=== PATIENT | female | born 1990 | race American Indian/Alaskan Native ===

== ENCOUNTER 2016-12-12 13:02 | Emergency (ER) | payer OTHER ==
[2016-12-12 13:12] VITALS: RESP 16; TEMP 98.1; O2SAT 100; BMI 43.2
[2016-12-12 14:30] LABS: ADD MANUAL DIFF? NO
[2016-12-12 14:40] LABS: BASO # 0.02 K/mm3 (0.0-2.0); BASO % 0.3 % (0.0-3.0); EOS # 0.2 (0.0-0.7); EOS % 3.2 % (1.5-5.0); GRAN # 4.99 (1.4-6.5); GRAN % 68.9 % (50.0-68.0); HEMATOCRIT 44.6 % (36.0-48.0); LYMPH # 1.6 (1.2-3.4); LYMPH % 22.1 % (22.0-35.0); MEAN CELL VOLUME 93.9 fL (80.0-105.0); MEAN CORPUSCULAR HEMOGLOBIN 30.9 pg (25.0-35.0); MEAN PLATELET VOLUME 10.7 fl (7.0-11.0); MONO # 0.4 (0.1-0.6); MONO % 5.5 % (1.0-6.0); PLATELET COUNT 251 10^3/uL (120.0-450.0); RED CELL DISTRIBUTION WIDTH 13.5 % (11.5-14.5); WHITE BLOOD COUNT 7.2 10^3/ul (4.5-11.0)
[2016-12-12 14:42] LABS: ALB/GLOB RATIO 1.1 (1.1-1.8); ALKALINE PHOSPHATASE 46 U/L (38-133); ALT/SGPT 32 U/L (7-56); AST/SGOT 26 U/L (15-39); BILIRUBIN,TOTAL 0.6 mg/dL (0.2-1.3); BLOOD UREA NITROGEN 8 mg/dL (7-21); CALCIUM 8.7 mg/dL (8.4-10.5); CARBON DIOXIDE 28 mmol/L (21-33); CHLORIDE 105 mmol/L (98-107); GFR AFRICAN-AMERICAN > 60; GLUCOSE,RANDOM 88 mg/dL (70-110); POTASSIUM 3.9 mmol/L (3.6-5.0); SODIUM 141 mmol/L (132-148); TOTAL PROTEIN 6.8 g/dL (5.8-8.3)
[2016-12-12 14:46] LABS: INR 1.02 (0.93-1.08); PARTIAL THROMBOPLASTIN TIME 26.8 Seconds (23.7-30.8)
--- NOTE | 2016-12-12 14:56 | ED PDOC ---
Arrival/HPI - General Chief Complaint: Abdominal Pain Time Seen by Provider: 12/12/16 13:28 - History of Present Illness Narrative History of Present Illness (Text): 12/12/16 14:52 26yo female with lower abd. cramping and vaginal bleeding/spotting x1 day. pt states he LNMP 2 weeks ago. States she has no sob/dozier, denies weakness. No f/c, no other complaints. Past Medical History - Provider Review Nursing Documentation Reviewed: Yes - Infectious Disease Hx of Infectious Diseases: None - Tetanus Immunization Tetanus Immunization: Up to Date - Past Medical History Past Medical History: No Previous - Cardiac Hx Cardiac Disorders: No Hx Hypertension: No - Pulmonary Hx Respiratory Disorders: No Hx Tuberculosis: No - Neurological Hx Neurological Disorder: No Hx Seizures: No - HEENT Hx HEENT Disorder: No - Renal Hx Renal Disorder: No - Endocrine/Metabolic Hx Endocrine Disorders: No - Hematological/Oncological Hx Blood Disorders: No - Integumentary Hx Dermatological Disorder: No - Musculoskeletal/Rheumatological Hx Musculoskeletal Disorders: No - Gastrointestinal Hx Gastrointestinal Disorders: No - Genitourinary/Gynecological Hx Genitourinary Disorders: Yes Hx Sexually Transmitted Diseases: No 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 - Psychiatric Hx Psychophysiologic Disorder: Yes Hx Anxiety: Yes Hx Depression: Yes Hx Substance Use: No - Past Surgical History Past Surgical History: No Previous - Surgical History Hx Appendectomy: Yes - Anesthesia Hx Anesthesia: Yes Hx Anesthesia Reactions: No Hx Malignant Hyperthermia: No - Suicidal Assessment Feels Threatened In Home Enviroment: No Family/Social History Family/Social History: Unknown Family HX Smoking Status: Current Some Days Smoker Hx Alcohol Use: Yes Frequency of alcohol use: Socially Hx Substance Use: No Hx Substance Use Treatment: No Allergies/Home Meds Allergies/Adverse Reactions: Allergies No Known Allergies Allergy (Verified 12/12/16 13:12) Physical Exam - Physical Exam Narrative Physical Exam (Text): 12/12/16 14:57 - Review of Systems Constitutional: Normal. absent: Fatigue, Weight Change, Fevers Eyes: Normal ENT: denies sore throat, denies tristhmus Respiratory: Normal. absent: SOB, Cough, Sputum Cardiovascular: absent: Chest Pain, Palpitations, Syncope Gastrointestinal: lower abdominal cramping absent: Diarrhea, Nausea, Vomiting Genitourinary: vaginal bleeding absent: Dysuria, Frequency, Hematuria Musculoskeletal: Normal. absent: Arthralgias, Back Pain, Neck Pain Skin: no rashes, no erythema Neurological: absent: Focal Weakness Endocrine: Normal Hemo/Lymphatic: Normal Psychiatric: No suicidal or homicidal ideations Physical exam Patient appears age appropriate in no distress, speaking full sentences without difficulty - Systems Exam Head: Present: Atraumatic, Normocephalic Pupils: Present: PERRL Extroacular Muscles: Present: EOMI Conjunctiva: Present: Normal Mouth: Present: Moist Mucous Membranes Neck: Present: Normal Range of Motion. No: MIDLINE TENDERNESS, Paraspinal Tenderness Respiratory/Chest: Present: Clear to Auscultation, Good Air Exchange. No: Respiratory Distress, Accessory Muscle Use, Tachypneic Cardiovascular: Present: Regular Rate and Rhythm, Normal S1, S2, Peripheal Pulses Present. No: Murmurs Abdomen: Present: Normal Bowel Sounds. No: Tenderness, Distention, Peritoneal Signs, Rebound, Guarding Back: Present: Normal Inspection. No: Midline Tenderness, Paraspinal Tenderness Upper Extremity: Present: Normal Inspection. No: Cyanosis, Edema Lower Extremity: Present: Normal Inspection. No: Edema Neurological: Present: GCS=15, Speech Normal, cranial nerves II through XII fully intact with no cerebellar abnormality, neurosensory fully intact. No focal neurological deficits. Skin: Present: Warm, Dry, Normal Color. No: Rashes Lymphatic: Present: OX3, NI, NC Psychiatric: Present: Alert, Oriented x 3, Normal Insight, Normal Concentration Vital Signs Reviewed: Yes Vital Signs Temp Pulse Resp BP Pulse Ox 12/12/16 13:08 98.1 F 89 16 157/96 H 100 Temperature: Afebrile Blood Pressure: Hypertensive (asymptomatic) Pulse: Regular Respiratory Rate: Normal Appearance: Positive for: Well-Appearing Pain Distress: None Mental Status: Positive for: Alert and Oriented X 3 Medical Decision Making ED Course and Treatment: 12/12/16 14:58 26-year-old female with one-day duration vaginal bleeding. Last normal menstrual period 2 weeks ago. No signs stable in no acute findings on physical examination. Differential diagnoses includes but not limited to: Metrorrhagia versus anemia versus PCOS Patient understands that she needs to follow-up with her film examiner for outpatient ultrasound and further testing. Patient's hemoglobin stable. HCG negative Patient states that her pain has gotten better States that she feels comfortable being discharged home with outpatient follow- up Pt states she understands to return to the ER right away for new or worsening symptoms or for inability to f/u with PMD or specialist as instructed. Patient states that she fully agrees with and understands discharge instructions. States that she agrees with the plan and disposition. Verbalized and repeated discharge instructions and plan. I have given the patient opportunity to ask any additional questions. - Lab Interpretations Lab Results: 12/12/16 14:20 12/12/16 14:20 Lab Results 12/12/16 14:20: WBC 7.2, RBC 4.75, Hgb 14.7, Hct 44.6, MCV 93.9, MCH 30.9, MCHC 33.0, RDW 13.5, Plt Count 251, MPV 10.7, Gran % 68.9 H, Lymph % (Auto) 22.1, Placer % (Auto) 5.5, Eos % (Auto) 3.2, Baso % (Auto) 0.3, Gran # 4.99, Lymph # 1.6 , Placer # 0.4, Eos # 0.2, Baso # 0.02, PT 11.0, INR 1.02, APTT 26.8, Sodium 141, Potassium 3.9, Chloride 105, Carbon Dioxide 28, Anion Gap 12, BUN 8, Creatinine 0.8, Est GFR ( Amer) > 60, Est GFR (Non-Af Amer) > 60, Random Glucose 88 , Calcium 8.7, Total Bilirubin 0.6, AST 26, ALT 32, Alkaline Phosphatase 46, Total Protein 6.8, Albumin 3.6, Globulin 3.2, Albumin/Globulin Ratio 1.1 12/12/16 13:40: Urine HCG, Qual Negative - Medication Orders Current Medication Orders: Discontinued Medications Ketorolac Tromethamine (Toradol) 15 mg IVP STAT STA Stop: 12/12/16 14:07 Last Admin: 12/12/16 14:29 Dose: 15 MG IVP Administration Document 12/12/16 14:29 PR (Rec: 12/12/16 14:29 [facility]-[id number]) Charges for Administration # of IVP Administrations 1 Disposition/Present on Arrival - Present on Arrival Any Indicators Present on Arrival: No History of DVT/PE: No History of Uncontrolled Diabetes: No Urinary Catheter: No History of Decub. Ulcer: No History Surgical Site Infection Following: None - Disposition Have Diagnosis and Disposition been Completed?: Yes Diagnosis: Vaginal bleeding Disposition: HOME/ ROUTINE Disposition Time: 15:01 Patient Plan: Discharge Condition: GOOD Discharge Instructions (ExitCare): Dysfunctional Uterine Bleeding (ED) Additional Instructions: PLEASE RETURN TO THE EMERGENCY DEPARTMENT FOR NEW OR WORSENING SYMPTOMS. RETURN RIGHT AWAY IF YOU CANNOT FOLLOW UP WITH YOUR PRIMARY CARE DOCTOR, CLINIC, OR SPECIALIST IN 1-2 DAYS. Prescriptions: Ibuprofen [Motrin] 600 mg PO Q8 PRN #12 tab PRN Reason: Pain, Moderate (4-7) Referrals: Eda Lake MD [Staff Provider] - Follow up with primary Forms: WORK NOTE
[2016-12-12 14:59] LABS: URINE BILIRUBIN NEGATIVE (NEGATIVE); URINE BLOOD LARGE (NEGATIVE); URINE GLUCOSE (UA) 100 mg/dL (NEGATIVE); URINE KETONE NEGATIVE (NEGATIVE); URINE LEUKOCYTE ESTERASE TRACE Leu/uL (NEGATIVE); URINE PROTEIN 100 mg/dL (<30 mg/dL)
[2016-12-12 15:05] LABS: URINE APPEARANCE CLEAR (CLEAR); URINE COLOR LIGHT RED (YELLOW)
[2016-12-12 15:06] LABS: URINE BACTERIA MOD (NEG); URINE RBC 25 - 30 /hpf (0-2); URINE WBC 0 - 2 /hpf (0-6)
[2016-12-12 15:21] VITALS: BP 158/90; PULSE 88
== END 2016-12-12 15:21 | disposition home or self-care (01) ==
LOC: ED 13:02
DX: N93.8 Other specified abnormal uterine and vaginal bleeding (principal)
CPT/HCPCS: 80053; 81001; 84703; 85025; 85610; 85730; 87086; 87491; 87591; 96374; 99283; J1885

== ENCOUNTER 2017-01-12 14:08 | Emergency (ER) | payer OTHER ==
[2017-01-12 14:09] VITALS: BMI 43.2
== END 2017-01-12 14:57 | disposition left against medical advice (07) ==
LOC: ED 14:08
DX: Z02.89 Encounter for other administrative examinations (principal); R07.0 Pain in throat

== ENCOUNTER 2017-01-13 12:18 | Emergency (ER) | payer OTHER ==
[2017-01-13 14:12] VITALS: BMI 44.9
[2017-01-13 14:14] VITALS: BP 125/81; PULSE 70; RESP 18; TEMP 98.6; O2SAT 96
--- NOTE | 2017-01-13 14:16 | ED PDOC ---
Arrival/HPI - General Time Seen by Provider: 01/13/17 14:12 Historian: Patient - History of Present Illness Narrative History of Present Illness (Text): 01/13/17 14:13 26 y/o female, pmh including facial fracture, nkda, c/o throat pain x 1 day with no fever or chills. Pt. has no neck pain, no headache, no coughing, no night sweat, no painful swallowing, no other medical or psychological complaints. Past Medical History - Provider Review Nursing Documentation Reviewed: Yes - Infectious Disease Hx of Infectious Diseases: None - Tetanus Immunization Tetanus Immunization: Up to Date - Past Medical History Past Medical History: No Previous - Cardiac Hx Cardiac Disorders: No Hx Hypertension: No - Pulmonary Hx Respiratory Disorders: No Hx Tuberculosis: No - Neurological Hx Neurological Disorder: No Hx Seizures: No - HEENT Hx HEENT Disorder: No - Renal Hx Renal Disorder: No - Endocrine/Metabolic Hx Endocrine Disorders: No - Hematological/Oncological Hx Blood Disorders: No - Integumentary Hx Dermatological Disorder: No - Musculoskeletal/Rheumatological Hx Musculoskeletal Disorders: No - Gastrointestinal Hx Gastrointestinal Disorders: No - Genitourinary/Gynecological Hx Genitourinary Disorders: Yes Hx Sexually Transmitted Diseases: No 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 - Psychiatric Hx Psychophysiologic Disorder: Yes Hx Anxiety: Yes Hx Depression: Yes Hx Substance Use: No - Past Surgical History Past Surgical History: No Previous - Surgical History Hx Appendectomy: Yes - Anesthesia Hx Anesthesia: Yes Hx Anesthesia Reactions: No Hx Malignant Hyperthermia: No - Suicidal Assessment Feels Threatened In Home Enviroment: No Family/Social History - Physician Review Nursing Documentation Reviewed: Yes Family/Social History: Unknown Family HX Smoking Status: Current Some Days Smoker Hx Alcohol Use: Yes Hx Substance Use: No Hx Substance Use Treatment: No Allergies/Home Meds Allergies/Adverse Reactions: Allergies No Known Allergies Allergy (Verified 01/13/17 14:14) Review of Systems - Review of Systems Constitutional: absent: Fatigue, Fevers Eyes: absent: Vision Changes ENT: Sore Throat. absent: Hearing Changes Respiratory: absent: SOB, Cough Cardiovascular: absent: Chest Pain Gastrointestinal: absent: Abdominal Pain, Nausea, Vomiting Musculoskeletal: absent: Arthralgias, Back Pain, Neck Pain, Joint Swelling, Myalgias Skin: absent: Rash, Pruritis Neurological: absent: Headache, Dizziness, Focal Weakness, Gait Changes, Speech Changes, Facial Droop, Disequilibrium, Seizure Physical Exam Vital Signs Reviewed: Yes Temperature: Afebrile Blood Pressure: Normal Pulse: Regular Respiratory Rate: Normal Appearance: Positive for: Well-Appearing, Non-Toxic, Comfortable Pain Distress: Mild Mental Status: Positive for: Alert and Oriented X 3 - Systems Exam Head: Present: Atraumatic, Normocephalic Pupils: Present: PERRL Extroacular Muscles: Present: EOMI Conjunctiva: Present: Normal Mouth: Present: Moist Mucous Membranes. No: Normal Tounge Pharnyx: No: EXUDATE, TONSILS ENLARGED, Peritonsilar Swelling, Uvular Deviation , Muffled/Hoarse Voice, Soft Palate/Uvular Edema Nose (External): Present: Atraumatic. No: Abrasion, Contusion, Laceration, Lesions Nose (Internal): Present: Normal Inspection, No Active Bleeding. No: Rhinorrhea , Septal Hematoma, Epistaxis Neck: Present: Normal Range of Motion Respiratory/Chest: Present: Clear to Auscultation, Good Air Exchange. No: Respiratory Distress, Accessory Muscle Use Cardiovascular: Present: Regular Rate and Rhythm, Normal S1, S2. No: Murmurs Abdomen: Present: Normal Bowel Sounds. No: Tenderness, Distention, Peritoneal Signs Back: Present: Normal Inspection Upper Extremity: Present: Normal Inspection. No: Cyanosis, Edema Lower Extremity: Present: Normal Inspection. No: Edema Neurological: Present: GCS=15, Speech Normal, Motor Func Grossly Intact, Gait Normal, Memory Normal Skin: Present: Warm, Dry, Normal Color. No: Rashes Psychiatric: Present: Alert, Oriented x 3, Normal Insight, Normal Concentration Medical Decision Making ED Course and Treatment: 01/13/17 14:14 -THere is no erythematous or signs of infection. -Discharge home with tylenol, salt water gargling, soft food diet, stay hydrated , bed rest, follow up with your own pmd and ENT within 2 days, return to the ER for any new or worsening signs or symptoms. - PA / SOUND PRINTER / Resident Statement MD/DO has reviewed & agrees with the documentation as recorded. Disposition/Present on Arrival - Present on Arrival Any Indicators Present on Arrival: No History of DVT/PE: No History of Uncontrolled Diabetes: No Urinary Catheter: No History of Decub. Ulcer: No History Surgical Site Infection Following: None - Disposition Have Diagnosis and Disposition been Completed?: Yes Diagnosis: Throat pain in adult Disposition: HOME/ ROUTINE Disposition Time: 14:15 Patient Plan: Discharge Condition: GOOD Additional Instructions: Discharge home with tylenol, salt water gargling, soft food diet, stay hydrated , bed rest, follow up with your own pmd and ENT within 2 days, return to the ER for any new or worsening signs or symptoms. Prescriptions: Acetaminophen [Tylenol 325mg tab] 2 tab PO QID #30 tab Referrals: Meek Lauren DO [Staff Provider] - Follow up with primary [facility] at [facility] [place] [Outside] - Follow up with primary Forms: WORK NOTE
== END 2017-01-13 14:40 | disposition home or self-care (01) ==
LOC: ED 12:18
DX: R07.0 Pain in throat (principal)

== ENCOUNTER 2017-02-04 20:25 | Emergency (ER) | payer OTHER ==
[2017-02-04 20:26] VITALS: BMI 44.9
[2017-02-04 20:50] VITALS: TEMP 98.7
--- NOTE | 2017-02-04 21:58 | ED PDOC ---
"Arrival/HPI - General Chief Complaint: Trauma Time Seen by Provider: 02/04/17 21:30 Historian: Patient - History of Present Illness Narrative History of Present Illness (Text): 02/04/17 21:50 This 26 yo female presents to this ED c/o left scalp trauma x [employer]. Patient stated while walking downstairs, she tripped and fell, hitting her head against a small bookcase furniture. Patient had Tetanus shot 4 months ago. Patient denies LOC, diplopia, dysarthria, weakness, paresthesias, syncope, neck pain, dizziness, or abnormal gait. Time/Duration: Prior to Arrival Context: Home Past Medical History - Provider Review Nursing Documentation Reviewed: Yes - Infectious Disease Hx of Infectious Diseases: None - Tetanus Immunization Tetanus Immunization: Up to Date - Past Medical History Past Medical History: No Previous - Cardiac Hx Cardiac Disorders: No Hx Hypertension: No - Pulmonary Hx Respiratory Disorders: No Hx Tuberculosis: No - Neurological Hx Neurological Disorder: No Hx Seizures: No - HEENT Hx HEENT Disorder: No - Renal Hx Renal Disorder: No - Endocrine/Metabolic Hx Endocrine Disorders: No - Hematological/Oncological Hx Blood Disorders: No - Integumentary Hx Dermatological Disorder: No - Musculoskeletal/Rheumatological Hx Musculoskeletal Disorders: No - Gastrointestinal Hx Gastrointestinal Disorders: No - Genitourinary/Gynecological Hx Genitourinary Disorders: Yes 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 - Psychiatric Hx Psychophysiologic Disorder: Yes Hx Anxiety: Yes Hx Depression: Yes Hx Substance Use: No - Past Surgical History Past Surgical History: No Previous - Surgical History Hx Appendectomy: Yes - Anesthesia Hx Anesthesia: Yes Hx Anesthesia Reactions: No Hx Malignant Hyperthermia: No - Suicidal Assessment Feels Threatened In Home Enviroment: No Family/Social History - Physician Review Nursing Documentation Reviewed: Yes Family/Social History: No Known Family HX Smoking Status: Light Smoker < 10 Cigarettes Daily Hx Alcohol Use: Yes Frequency of alcohol use: Socially Hx Substance Use: No Hx Substance Use Treatment: No Allergies/Home Meds Allergies/Adverse Reactions: Allergies No Known Allergies Allergy (Verified 01/13/17 14:14) Review of Systems - Review of Systems Constitutional: Normal. absent: Fatigue, Weight Change, Fevers Eyes: Normal ENT: Normal Respiratory: Normal Cardiovascular: Normal Gastrointestinal: Normal Genitourinary Female: Normal Musculoskeletal: Other (Head injury) Skin: Normal Neurological: Normal Endocrine: Normal Hemo/Lymphatic: Normal Psychiatric: Normal Physical Exam Vital Signs Temp Pulse Resp BP Pulse Ox 02/05/17 01:00 88 18 130/73 96 02/04/17 20:49 98.7 F 100 H 16 132/86 100 Temperature: Afebrile Blood Pressure: Normal Pulse: Regular Respiratory Rate: Normal Appearance: Positive for: Well-Appearing, Non-Toxic, Comfortable Pain Distress: None Mental Status: Positive for: Alert and Oriented X 3 - Systems Exam Head: Present: Normocephalic, Laceration (left vertex of scal has a laceration approx. 2.7 cm, not actively bleeding.), Other (No raccoon sign. No carpenter sign) Pupils: Present: PERRL, Other (no hyphema) Extroacular Muscles: Present: EOMI. No: Entrapment Conjunctiva: Present: Normal Ears: Present: Normal, NORMAL TM, Normal Canal, Other (No hemotympanum). No: Erythema, TM Bulging Mouth: Present: Moist Mucous Membranes Pharnyx: Present: Normal. No: ERYTHEMA, EXUDATE, TONSILS ENLARGED Nose (External): Present: Atraumatic Nose (Internal): Present: Normal Inspection Neck: Present: Normal Range of Motion, Trachea Midline. No: Meningeal Signs, MIDLINE TENDERNESS, Paraspinal Tenderness Respiratory/Chest: Present: Clear to Auscultation, Good Air Exchange. No: Respiratory Distress, Accessory Muscle Use Cardiovascular: Present: Regular Rate and Rhythm, Normal S1, S2. No: Murmurs Abdomen: Present: Normal Bowel Sounds. No: Tenderness, Distention, Peritoneal Signs Back: Present: Normal Inspection. No: CVA Tenderness, Paraspinal Tenderness, Pain with Leg Raise Upper Extremity: Present: Normal Inspection, Normal ROM, NORMAL PULSES, Neurovascularly Intact, Capillary Refill < 2s. No: Cyanosis, Edema Lower Extremity: Present: Normal Inspection, NORMAL PULSES, Normal ROM, Neurovascularly Intact, Capillary Refill < 2 s. No: Edema Neurological: Present: GCS=15, CN II-XII Intact, Speech Normal, Motor Func Grossly Intact, Normal Sensory Function, Normal Cerebellar Funct, Gait Normal, Memory Normal Skin: Present: Warm, Dry, Normal Color. No: Rashes Psychiatric: Present: Alert, Oriented x 3, Normal Insight, Normal Concentration Medical Decision Making ED Course and Treatment: 02/04/17 22:26 Patient is requesting pain medication. She prefers stronger than Tylenol 02/05/17 00:51 Re-evaluation. Patient feels better. Discussed results and plan with patient who expresses understanding. All questions answered and there is agreement with the plan to discharge home with instructions. Patient stable for discharge. Return if symptoms persist or worsen. Re-evaluation Time: 00:51 Reassessment Condition: Re-examined, Improved - RAD Interpretation Narrative RAD Interpretations (Text): 02/05/17 00:51 [facility] Patient Name: GUME RUTH I FINDINGS: No intracranial hemorrhage. No extra axial collections. No intracranial edema. No fluid in the sinuses or mastoid air cells. An old fracture of the left lamina papyracea is noted. No acute fractures. IMPRESSION: No acute intracranial injury. GUME RUTH | Final Radiology Report CONFIDENTIALITY STATEMENT This report is intended only for use by the referring physician, and only in accordance with law. If you received this in error, call [phone]. Page 2 of 2 Thank you for allowing us to participate in the care of your patient. Dictated and Authenticated by: Tamy Clayton MD 02/05/2017 12:42 AM Eastern Time ([place] & [place]) Radiology Orders: 02/04/17 21:56 HEAD W/O CONTRAST [CT] Stat - Medication Orders Current Medication Orders: Discontinued Medications Morphine Sulfate (Morphine) 4 mg IM STAT STA Stop: 02/04/17 22:27 Last Admin: 02/04/17 22:50 Dose: 4 mg Ondansetron HCl (Zofran Odt) 4 mg PO STAT STA Stop: 02/04/17 22:27 Last Admin: 02/04/17 22:50 Dose: 4 mg - Procedure PROCEDURE NOTE (Text): 02/05/17 00:51 3 hayes were placed PROCEDURE: LACERATION REPAIR Performed by the emergency provider Location: scalp Length: 3 cm Description: clean wound edges, no foreign bodies Distal CMS: Normal. No deficits. Neurovascularly intact. Anesthesia: none Preparation: The wound was cleaned with NS and [place]. The area was prepped and draped in the usual sterile fashion. Exploration: The wound was explored and no foreign bodies were found. Procedure: The wound was Hayes. There was good approximation. In total, 3 hayes were used. Post-Procedure: Good closure and hemostasis. The patient tolerated the procedure well and there were no complications. CSM remains intact. Post procedure dressing applied. Disposition/Present on Arrival - Present on Arrival Any Indicators Present on Arrival: No History of DVT/PE: No History of Uncontrolled Diabetes: No Urinary Catheter: No History of Decub. Ulcer: No History Surgical Site Infection Following: None - Disposition Have Diagnosis and Disposition been Completed?: Yes Diagnosis: Scalp laceration, Closed head injury Disposition: HOME/ ROUTINE Disposition Time: 00:52 Patient Plan: Discharge Condition: GOOD Discharge Instructions (ExitCare): Laceration (ED), Head Injury (ED) Additional Instructions: Call private doctor for follow up visit in 1- 2 days for wound check. keep wound clean and dry for 2 days, then clean wound with soap and water daily. Hayes needs to be removed in 7 days Prescriptions: Ibuprofen [Motrin] 600 mg PO Q8 PRN #20 tab PRN Reason: Pain, Severe (8-10) Referrals: [facility] [Outside] - Follow up with primary Forms: WORK NOTE"
[2017-02-04] MEDS ORDERED: Morphine 4 mg/ml ISec IM STA (22:26)
--- NOTE | 2017-02-05 00:42 | CT ---
EXAM: CT Head Without Intravenous Contrast CLINICAL HISTORY: 26 years old, female; Pain; Headache; Additional info: GLEZ S/P trauma TECHNIQUE: Axial computed tomography images of the head/brain without intravenous contrast. This CT exam was performed using one or more of the following dose reduction techniques: automated exposure control, adjustment of the mA and/or kV according to patient size, and/or use of iterative reconstruction technique. EXAM DATE/TIME: 02/04/2017 9:56 PM COMPARISON: CT - HEAD W/O CONTRAST 07/15/2016 2:37:37 PM FINDINGS: No intracranial hemorrhage. No extra axial collections. No intracranial edema. No fluid in the sinuses or mastoid air cells. An old fracture of the left lamina papyracea is noted. No acute fractures. IMPRESSION: No acute intracranial injury.
[2017-02-05 01:03] VITALS: BP 130/73; PULSE 88; RESP 18; O2SAT 96
== END 2017-02-05 01:04 | disposition home or self-care (01) ==
LOC: ED 20:25
DX: S01.01XA Laceration without foreign body of scalp, initial encounter (principal); W10.8XXA Fall (on) (from) other stairs and steps, initial encounter; Y93.89 Activity, other specified; Y92.89 Other specified places as the place of occurrence of the external cause
CPT/HCPCS: 12002; 70450; 96372; 99285; J2270

== ENCOUNTER 2017-02-13 17:19 | Emergency (ER) | payer OTHER ==
[2017-02-13 17:20] VITALS: BMI 44.9
[2017-02-13 17:43] VITALS: BP 115/81; PULSE 67; TEMP 98.7
--- NOTE | 2017-02-13 18:05 | ED PDOC ---
Arrival/HPI - General Chief Complaint: Suture/Staple Removal Time Seen by Provider: 02/13/17 17:52 Historian: Patient - History of Present Illness Narrative History of Present Illness (Text): 02/13/17 18:03 26yr old female presents today for staple removal to the left frontal scalp. Patient states 8 days ago she was drinking and hit her head. She denies headaches dizziness or weakness. Patient states she had 3 adelina placed in the scalp. Denies neck or back pain. No fevers or chills. Patient states she's been keeping the wound clean and dry. No other complaints Past Medical History - Provider Review Nursing Documentation Reviewed: Yes - Travel History Have you recently traveled outside [place] w/in the past 3 mons?: No - Infectious Disease Hx of Infectious Diseases: None - Tetanus Immunization Tetanus Immunization: Up to Date - Past Medical History Past Medical History: No Previous - Cardiac Hx Cardiac Disorders: No Hx Hypertension: No - Pulmonary Hx Respiratory Disorders: No Hx Tuberculosis: No - Neurological Hx Neurological Disorder: No Hx Seizures: No - HEENT Hx HEENT Disorder: No - Renal Hx Renal Disorder: No - Endocrine/Metabolic Hx Endocrine Disorders: No - Hematological/Oncological Hx Blood Disorders: No - Integumentary Hx Dermatological Disorder: No - Musculoskeletal/Rheumatological Hx Musculoskeletal Disorders: No - Gastrointestinal Hx Gastrointestinal Disorders: No - Genitourinary/Gynecological Hx Genitourinary Disorders: Yes 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 - Psychiatric Hx Psychophysiologic Disorder: Yes Hx Anxiety: Yes Hx Depression: Yes Hx Substance Use: No - Past Surgical History Past Surgical History: No Previous - Surgical History Hx Appendectomy: Yes - Anesthesia Hx Anesthesia: Yes Hx Anesthesia Reactions: No Hx Malignant Hyperthermia: No - Suicidal Assessment Feels Threatened In Home Enviroment: No Family/Social History - Physician Review Nursing Documentation Reviewed: Yes Family/Social History: Unknown Family HX Smoking Status: Light Smoker < 10 Cigarettes Daily Hx Alcohol Use: Yes Hx Substance Use: No Hx Substance Use Treatment: No Allergies/Home Meds Allergies/Adverse Reactions: Allergies No Known Allergies Allergy (Verified 02/13/17 17:39) Home Medications: Home Meds Medication Instructions Recorded Confirmed No Known Home Med 02/13/17 02/13/17 Review of Systems - Review of Systems Constitutional: absent: Fatigue, Fevers Eyes: absent: Eye Pain Respiratory: absent: SOB, Cough Cardiovascular: absent: Chest Pain Gastrointestinal: absent: Abdominal Pain, Vomiting Skin: Laceration (scalp laceration). absent: Pruritis Neurological: absent: Headache, Dizziness Physical Exam Vital Signs Reviewed: Yes Vital Signs Temp Pulse Resp BP Pulse Ox 02/13/17 17:41 98.7 F 67 15 115/81 98 Temperature: Afebrile Blood Pressure: Normal Pulse: Regular Respiratory Rate: Normal Appearance: Positive for: Well-Appearing, Non-Toxic, Comfortable Pain Distress: None Mental Status: Positive for: Alert and Oriented X 3 - Systems Exam Head: Present: Laceration (healing laceration with [address] located to the left frontal scalp. no edema, no erythema; no ecchymosis;) Mouth: Present: Moist Mucous Membranes Respiratory/Chest: Present: Clear to Auscultation Cardiovascular: Present: Regular Rate and Rhythm Skin: Present: Warm, Dry Psychiatric: Present: Alert, Oriented x 3 Medical Decision Making ED Course and Treatment: 02/13/17 18:05 Patient is nontoxic well-appearing in no distress. Vital signs are stable. Staple removal: 3 adelina removed Wound healing well without signs of infection I advised the patient to keep the wound clean and dry apply bacitracin twice daily and return if symptoms worsen persist or if new symptoms develop Impression: Staple removal Keep the wound clean and dry Apply bacitracin twice daily Follow up with primary care physician within the next 2 days Return immediately if symptoms worsen persist or if new symptoms develop Disposition/Present on Arrival - Present on Arrival Any Indicators Present on Arrival: No History of DVT/PE: No History of Uncontrolled Diabetes: No Urinary Catheter: No History of Decub. Ulcer: No History Surgical Site Infection Following: None - Disposition Have Diagnosis and Disposition been Completed?: Yes Diagnosis: Removal of adelina Disposition: HOME/ ROUTINE Disposition Time: 18:02 Patient Plan: Discharge Condition: GOOD Additional Instructions: Keep the wound clean and dry Apply bacitracin twice daily Follow up with primary care physician within the next 2 days Return immediately if symptoms worsen persist or if new symptoms develop Referrals: Shasta Samuel MD [Staff Provider] - Follow up with primary
[2017-02-13 18:26] VITALS: RESP 18; O2SAT 99
== END 2017-02-13 18:25 | disposition home or self-care (01) ==
LOC: ED 17:19
DX: Z48.02 Encounter for removal of sutures (principal); F17.210 Nicotine dependence, cigarettes, uncomplicated

== ENCOUNTER 2017-06-07 01:49 | Emergency (ER) | payer OTHER ==
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
[2017-06-07 02:25] VITALS: BMI 49.9
[2017-06-07 02:31] VITALS: RESP 19; TEMP 98.1; O2SAT 99
[2017-06-07 05:05] VITALS: BP 140/62; PULSE 77
--- NOTE | 2017-06-07 10:58 | CT ---
PROCEDURE: CT MAXILLOFACIAL BONES WITHOUT CONTRAST HISTORY: rt jaw pain COMPARISON: None TECHNIQUE: Contiguous axial CT images of the maxillofacial bones were obtained. Coronal and sagittal reformats were generated. Radiation dose: Total exam DLP = 893.53 mGy-cm. This CT exam was performed using one or more of the following dose reduction techniques: Automated exposure control, adjustment of the mA and/or kV according to patient size, and/or use of iterative reconstruction technique. FINDINGS: NASAL BONES: Unremarkable. ORBITS: Left lamina papyracea depressed fracture of indeterminate age. No other orbital fracture. No orbital hemorrhage. No preseptal soft tissue thickening. Likely old lamina papyracea fracture. Orbital floors are intact. PARANASAL SINUSES/ MASTOIDS: Clear. MAXILLA: Unremarkable. MANDIBLE/ TEMPOROMANDIBULAR JOINTS: No fracture. Temporomandibular joints intact. There is some stranding of the subcutaneous soft tissues over the right mandibular body likely due to direct trauma. SKULL BASE: Unremarkable. TEMPORAL BONES: Middle ears and mastoid grossly unremarkable. OTHER FINDINGS: Shotty right submandibular lymph nodes, no probable clinical significance. Up to 12 mm short axis. IMPRESSION: Probable old left lamina papyracea depressed fracture. No other significant abnormality identified. Preliminary interpretation of this examination was reported by [email or web address] at 5:58 a.m. on 06/07/2017. There is concurrence of this report with the preliminary interpretation.
== END 2017-06-07 06:20 | disposition home or self-care (01) ==
LOC: ED 01:49
DX: S00.83XA Contusion of other part of head, initial encounter (principal); W50.0XXA Accidental hit or strike by another person, initial encounter; Y92.009 Unspecified place in unspecified non-institutional (private) residence as the place of occurrence of the external cause